=== PATIENT | female | born 1950 ===

== ENCOUNTER 2016-07-07 17:29 | Emergency (ER) | payer SELFPAY ==
[2016-07-07 17:44] VITALS: BP 138/75; PULSE 73; RESP 18; TEMP 98; O2SAT 95
--- NOTE | 2016-07-07 18:09 | C.PDOC ---
History Of Present Illness 66 yo female w/PMHx of hypercholesterolemia, come in request medication refill for Rosuvastatin and "sleeping pill". Pt sts, arrived from [facility] to visit and completed my medication few days ago". Otherwise, pt denies any active complaints. Ambulate to Ed for evaluation, not in any apparent distress. Time Seen by Provider: 07/07/16 17:48 Chief Complaint (Nursing): Med Refill History Per: Patient, Family Past Medical History Reviewed: Historical Data, Nursing Documentation, Vital Signs Vital Signs: Last Vital Signs Temp 98 F 07/07/16 17:33 Pulse 73 07/07/16 17:33 Resp 18 07/07/16 17:33 BP 138/75 07/07/16 17:33 Pulse Ox 95 07/07/16 18:09 - Medical History PMH: Hypercholesterolemia Other PMH: Insomnia Family History: States: No Known Family Hx - Social History Hx Alcohol Use: No Hx Substance Use: No - Immunization History Hx Tetanus Toxoid Vaccination: No Hx Influenza Vaccination: No Hx Pneumococcal Vaccination: No Review Of Systems Except As Marked, All Systems Reviewed And Found Negative. Constitutional: Negative for: Fever, Chills Eyes: Negative for: Vision Change ENT: Negative for: Ear Discharge, Nose Discharge, Nose Congestion Cardiovascular: Negative for: Chest Pain, Palpitations, Edema, Light Headedness Respiratory: Negative for: Cough, Shortness of Breath, Wheezing Gastrointestinal: Negative for: Nausea, Vomiting, Abdominal Pain, Diarrhea Genitourinary: Negative for: Dysuria, Frequency, Incontinence Musculoskeletal: Negative for: Neck Pain, Back Pain Skin: Negative for: Rash Neurological: Negative for: Weakness, Numbness, Altered Mental Status, Headache , Dizziness Physical Exam - Physical Exam Appears: Well, Non-toxic, No Acute Distress Skin: Warm, No Rash Neck: Trachea Midline, Supple Cardiovascular: Rhythm Regular Respiratory: No Stridor, No Wheezing Gastrointestinal/Abdominal: Soft, No Tenderness Back: No CVA Tenderness Extremity: No Pedal Edema Neurological/Psych: Oriented x3, Normal Speech ED Course And Treatment O2 Sat by Pulse Oximetry: 95 Pulse Ox Interpretation: Normal Progress Note: On re-evaluation, pt is afebrile, hemodynamicaly stable. Non- toxic. Ambulatory in ED with stable gait. Asymptomatic. Pt advised and ref. to F/u with Clinic for further eval and rx refill. Disposition Counseled Patient/Family Regarding: Diagnosis, Need For Followup, Rx Given - Disposition Referrals: [facility] [Outside] Disposition: HOME/ ROUTINE Disposition Time: 18:08 Condition: STABLE Additional Instructions: Follow up with Clinic in 2-3 days for re-evaluation and medication refill. return if any new changes. Prescriptions: Rosuvastatin Calcium [Crestor] 10 mg PO HS #30 tab Zolpidem [Ambien] 5 mg PO HS #20 tab Instructions: Insomnia (ED), Hyperlipidemia (GEN), Medicine Refill (ED) Print Language: CROATIAN - Clinical Impression Clinical Impression: Medication refill, Hypercholesteremia, Insomnia
== END 2016-07-07 18:47 | disposition home or self-care (01) ==
LOC: C.ER 17:29
DX: Z76.0 Encounter for issue of repeat prescription (principal); E78.00 Pure hypercholesterolemia, unspecified; G47.00 Insomnia, unspecified